=== PATIENT | male | born 1940 | race Hispanic/Latino ===

== ENCOUNTER → 2019-04-09 | Outpatient (CLI) | payer OTHER ==
[~2019-04-09] MED LIST: AMLO5TAB9 PO; ASCO-512 PO; AZAT50TA PO; CYAN100010 PO; DOXY100C2 PO; FERS325 PO; FINA5TAB41 PO; FISH1CAP49 PO; LISI2.5T2 PO; OMEP20TA25 PO; PRED20TA3 PO; RIVA15TA PO; URSO300C4 PO; VITA400T9 PO
== END | disposition home or self-care (01) ==
LOC: SHCH 07:46
PROVIDERS: ATTEND Internal Medicine Cardiovascular Disease
DX: I65.23 Occlusion and stenosis of bilateral carotid arteries (principal)
CPT/HCPCS: 93880; 93978

== ENCOUNTER → 2020-11-02 | Outpatient (CLI) | payer OTHER ==
[~2020-11-02] MED LIST changes: +AMLO-257 PO; -AMLO5TAB9 PO; -ASCO-512 PO; +ASCO500T92 PO
== END | disposition home or self-care (01) ==
LOC: SHCH 12:36
PROVIDERS: ATTEND Internal Medicine Cardiovascular Disease
DX: I08.1 Rheumatic disorders of both mitral and tricuspid valves (principal); I27.20 Pulmonary hypertension, unspecified
CPT/HCPCS: 93306; 93356

== ENCOUNTER 2022-09-05 13:44 | Emergency (ER) | payer OTHER ==
[~2022-09-05] VITALS: Ht 167.6 cm; Wt 69.9 kg
[~2022-09-05 13:44] MED LIST changes: -AMLO-257 PO; +AMLO-258 PO; +BETH25 PO; +BRIM5DRO21 OP; -DOXY100C2 PO; +LATA7.5D OP; -LISI2.5T2 PO; +OMEP20CA12 PO; -OMEP20TA25 PO; +OXYM30SP NS; -PRED20TA3 PO; -RIVA15TA PO; +RIVA20TA PO; +TAMS-1 PO
[2022-09-05 15:23] LABS: APPEARANCE,URINE CLOUDY (CLEAR); BILIRUBIN,URINE NEGATIVE (NEGATIVE); COLOR,URINE YELLOW (YELLOW); GLUCOSE, URINE (UA) NEGATIVE (NEGATIVE); KETONES,URINE NEGATIVE (NEGATIVE); LEUKOCYTE ESTERASE ,URINE 500 Leu/uL (NEGATIVE); NITRATE,URINE NEGATIVE (NEGATIVE); OCCULT BLOOD,URINE LARGE (NEGATIVE); PH,URINE 6.5 (5.0-8.0); PROTEIN,URINE 30 mg/dL (NEGATIVE); UROBILINOGEN,URINE 0.2 mg/dL (0.2-1.0)
[2022-09-05 15:30] LABS: BACTERIA,URINE FEW /HPF (None Seen); RBC,URINE 26-50 /HPF (0-1); SQUAMOUS EPITHELIAL CELL,UR RARE /HPF (0-2); WBC,URINE 51-100 /HPF (0-1); YEAST,URINE BUDDING FEW /HPF (None Seen)
[2022-09-05] MEDS ORDERED: CEFU500T67 PO (15:58)
[2022-09-05 16:15] VITALS: BP 105/69
== END 2022-09-05 16:22 | disposition home or self-care (01) ==
LOC: EDH 13:44
DX: N39.0 Urinary tract infection, site not specified (principal); R33.9 Retention of urine, unspecified; Z88.8 Allergy status to other drugs, medicaments and biological substances; Z79.899 Other long term (current) drug therapy
CPT/HCPCS: 51701; 81001; 87077; 87088; 87186

== ENCOUNTER 2022-12-01 05:50 | Observation (INO) | payer OTHER ==
[2022-11-29 14:12] VITALS: BP 110/64
[~2022-12-01] VITALS: Ht 167.6 cm; Wt 66.4 kg
[2022-12-01] VITALS (10 sets, daily range): BP systolic 92–150; BP diastolic 53–92
[~2022-12-01 05:50] MED LIST changes: -AMLO-258 PO; -BETH25 PO; +FURO20TA4 PO; -TAMS-1 PO; +VITA-395 PO; -VITA400T9 PO
[2022-12-01] MEDS ORDERED: 0.9%NACL 1000ML 1,000 ML IV ONE (06:48)
[2022-12-01] MEDS ORDERED: BUPIVACAINE/PF 0.25% 10ML VIAL IJ ONE (07:44)
[2022-12-01] MEDS ORDERED: MEPERIDINE-PF 25 MG/ML SYG ONE ×4 (07:45→10:43)
[2022-12-01] MEDS ORDERED: MIDAZOLAM HCL 1 MG/ML 2ML VIAL ONE ×4 (07:45→10:43)
[2022-12-01] MEDS ORDERED: CEFAZOLIN SODIUM 1 GM VIAL ONE (07:45)
[2022-12-01] MEDS ORDERED: LIDOCAINE HCL 1% MDV 50ML VIAL ONE (07:45)
[2022-12-01] MEDS ORDERED: IODIXANOL 320 MG/ML 100 ML VIAL ONE (08:27)
[2022-12-01] MEDS ORDERED: ACETAMINOPHEN 500 MG TABLET PO PRN (12:00)
[2022-12-01] MEDS ORDERED: ACETAMINOPHEN WITH CODEINE 1 TAB TAB PO PRN (12:00)
[2022-12-01] MEDS: FISH OIL 1000 MG/CAP PO SCH ×2 (13:57→21:20)
[2022-12-01] MEDS: URSODIOL 300 MG CAPSULE PO SCH ×2 (13:57→21:00)
[2022-12-01] MEDS: 0.9% NACL 500ML IV.SOLN 500 ML IV SCH ×2 (17:00→21:23)
[2022-12-01] MEDS: AZATHIOPRINE 50 MG TAB PO SCH (21:00)
[2022-12-01] MEDS ORDERED: NON-FORMULARY MEDICATION 1 EACH (Omeprazole 20 MG) PO SCH (21:00)
[2022-12-01] MEDS: BRIMONIDINE TIMOLOL OP SCH (21:00)
[2022-12-02] MEDS: 0.9% NACL 500ML IV.SOLN 500 ML IV SCH ×3 (02:38→13:00)
[2022-12-02 04:03] LABS: CREATININE 1.1 mg/dL (0.5-1.5); POTASSIUM 4.1 mmol/L (3.5-5.1)
[2022-12-02 04:25] VITALS: BP 158/91
[2022-12-02] MEDS: FISH OIL 1000 MG/CAP PO SCH ×2 (05:38→13:12)
[2022-12-02] MEDS: AZATHIOPRINE 50 MG TAB PO SCH (08:39)
[2022-12-02] MEDS: BRIMONIDINE TIMOLOL OP SCH (08:39)
[2022-12-02] MEDS: URSODIOL 300 MG CAPSULE PO SCH ×2 (08:40→13:12)
[2022-12-02 08:45] VITALS: BP 115/72
[2022-12-02] MEDS ORDERED: NON-FORMULARY MEDICATION 1 EACH (Ascorbic Acid (Vitamin C) 500 MG) PO SCH (09:00)
[2022-12-02] MEDS ORDERED: ASCORBIC ACID 500 MG TAB PO SCH (09:00)
[2022-12-02] MEDS ORDERED: NON-FORMULARY MEDICATION 1 EACH (Ferrous Sulfate 325 MG) PO SCH (09:00)
[2022-12-02] MEDS ORDERED: CYANOCOBALAMIN (VITAMIN B-12) 1,000 MCG TABLET PO SCH (09:00)
[2022-12-02] MEDS ORDERED: FERROUS SULFATE 325 MG TABLET.DR PO SCH (09:00)
[2022-12-02] MEDS ORDERED: PANTOPRAZOLE 40 MG TAB DR PO SCH (09:00)
[2022-12-02] MEDS ORDERED: NON-FORMULARY MEDICATION 1 EACH (Cyanocobalamin (Vitamin B-12) (Vitamin B-12) 1,000 MCG) PO SCH (09:00)
[2022-12-02] MEDS ORDERED: FINASTERIDE 5 MG TABLET PO SCH (09:00)
[2022-12-02 12:29] VITALS: BP 135/78
== END 2022-12-02 16:47 | disposition home or self-care (01) ==
LOC: DAH 05:50 → DAHIP 05:51 → 2AH 13:17
PROVIDERS: ADMIT Internal Medicine Cardiovascular Disease; ATTEND Internal Medicine Cardiovascular Disease
DX: I49.5 Sick sinus syndrome (principal); I13.0 Hypertensive heart and chronic kidney disease with heart failure and stage 1 through stage 4 chronic kidney disease, or unspecified chronic kidney disease; I50.22 Chronic systolic (congestive) heart failure; N18.30 Chronic kidney disease, stage 3 unspecified; I44.30 Unspecified atrioventricular block; I48.21 Permanent atrial fibrillation; I25.5 Ischemic cardiomyopathy; I50.84 End stage heart failure; I48.20 Chronic atrial fibrillation, unspecified; K21.9 Gastro-esophageal reflux disease without esophagitis; K74.60 Unspecified cirrhosis of liver; Z79.899 Other long term (current) drug therapy; Z98.890 Other specified postprocedural states
CPT/HCPCS: 80048 ×2; 85025; 85610; 85730; 36415 ×2; 93005 ×3; 33249; 71045; C1894 ×2; C1898; C1721; C1896; C1895; G0378 ×29; J0690; J7030; J7500; J2250 ×4; J3490 ×2; J2175 ×4; Q9967; A4215; A4223 ×3; A4222; A4221; A4663; A4216; A4606; 99156; 99157